=== PATIENT | female | born 2000 | race Caucasian/White ===

== ENCOUNTER 2022-08-13 09:28 | Emergency (ER) | payer SELFPAY ==
--- OUTSIDE RECORDS SUMMARY | 2022-08-13 09:32 | XMS REPORT | Continuity of Care Document ---
:2000 Author Organization [facility] t Address [address] [place] [address] Care Team Providers Name Role Phone PCP, PATIENT DOES NOT HAVE A Primary Care Physician Unavaila ARAMIS Avila Attending Clinician Unavailable Aramis Anaya Attending Clinician Doctor Unassigned, [place] Attending Clinician Unavailable Jesus Trent Attending Clinician Payers Payer Name Policy Type Policy Number Effective Date Expiration Date S [facility] - [id number] 2021 00:00:00 OUT OF STATE Problems Condition Condition Condition Status Onset Resolution Last Treating Co mments Source Name Details Category Date Date Treatment Clinician Date No known No known Disease Unive rs active active ity of problems problems [facility] Allergies, Adverse Reactions, Alerts Allergy Allergy Status Severity Reaction(s) Onset Inactive Treating Comm ents Source Name Type Date Date Clinician NO KNOWN Drug Active Univers ALLERGIE Class ity of S [facility] Social History Social Habit Start Date Stop Date Quantity Comments Source Exposure to 2021-12-11 2021-12-21 Not sure [facility] SARS-CoV-2 (event) 00:00:00 09:58:00 Medica l Branch Tobacco use and 2021-06-03 2021-06-03 Never used [facility] exposure 00:00:00 00:00:00 [facility] Sex Assigned At [birth year] [facility] 00:00:00 00:00:00 [facility] Smoking Status Start Date Stop Date Source Never smoker [facility] Medications Ordered Filled Start Stop Current Ordering Indication Dosage Frequency Signature Comments Components Source Medication Medication Date Date Medication? Clinician (SIG) Name Name predniSONE No [id number] 20mg Take 1 Univers 20 mg 12-21 tablet by ity of tablet 00:00: 04:59 mouth [place] 00 :00 daily for Medical 5 days. Branch No known 2020-06 No Univers medications 08-04 ity of 16:34: [place] 05 Medical Branch predniSONE 2020-06 No [id number] 20mg Take 1 Univers 20 mg 08-04 tablet by ity of tablet 00:00: 05:59 mouth [place] 00 :00 daily for Medical 5 days. Branch Vital Signs Vital Name Observation Time Observation Value Comments Source Systolic blood 2021-12-21 15:03:00 114 mm[Hg] Univer sity [facility] Diastolic blood 2021-12-21 15:03:00 79 mm[facility]Hg] [facility] 2021-12-21 15:03:00 69 /min [facility] Body temperature 2021-12-21 15:03:00 36.67 Fannie [facility] Respiratory rate 2021-12-21 15:03:00 16 /min [facility] Body height 2021-12-21 15:03:00 157.5 cm [facility] Body weight 2021-12-21 15:03:00 63.957 kg [facility] BMI 2021-12-21 15:03:00 25.79 kg/m2 [facility] Oxygen saturation in 2021-12-21 15:03:00 99 /min [facility] Arterial blood by [facility] Pulse oximetry Branch Systolic blood 2021-06-03 22:19:00 122 mm[Hg] Univer sity [facility] Diastolic blood 2021-06-03 22:19:00 82 mm[Hg] Unive rsity of [facility] Heart rate 2021-06-03 22:19:00 80 /min Universi [facility] Body temperature 2021-06-03 22:19:00 37.17 Fannie [facility] Respiratory rate 2021-06-03 22:19:00 16 /min [facility] Body height 2021-06-03 22:19:00 160 cm [facility] Body weight 2021-06-03 22:19:00 63.957 kg [facility] BMI 2021-06-03 22:19:00 24.98 kg/m2 [facility] Oxygen saturation in 2021-06-03 22:19:00 100 /min [facility] Arterial blood by [facility] Pulse oximetry [facility] Procedures Procedure Date / Time Performed Performing Clinician [facility] e ASSIGNMENT OF BENEFITS 2021-12-21 14:58:49 Doctor Unassigned, No [facility] Encounters Start End Encounter Admission Attending Care Care Encounter Source Date/Time Date/Time Type Type Clinicians Facility Department ID 2021-12-21 2021-12-21 Outpatient Derek ROCHE [facility] [id number] Univers 10:00:00 10:22:[address] [facility] 2021-12-21 2021-12-21 Urgent Sukhjinder [facility] [id number] Univers 10:00:00 10:22:22 Care Aramis HEALTH [id number] it y of [place] [id number] Johan as WILLAM?BLEA [id number] [address] MEDICAL OFFICE BUILDING 2021-12-21 2021-12-21 Orders Doctor MORA [id number] Univers 00:00:00 00:00:00 Only Unassigned, RONNELL [id number] ity of [place] [facility] [id number] Johan as [id number] [place] [address] Branch 2021-06-03 2021-06-03 Outpatient Derek ROCHE [facility] [id number] Univers 16:20:00 16:29:25 ARAMIS ity [facility] 2021-06-03 2021-06-03 Urgent Jesus Ibrahim [facility] [id number] Univers 16:17:12 16:29:25 Care Sukhjinder, Aramis HEALTH [id number] ity of [place] [id number] Johan as WILLAM?BLEA [id number] Oh joann [address] MEDICAL OFFICE BUILDING Results This patient has no known results.
--- NOTE | 2022-08-13 10:04 | RAD REPORT ---
EXAM DESCRIPTION: CT - C Spine Wo Con - 08/13/2022 9:50 am CLINICAL HISTORY: neck pain Neck injury and pain, radiculopathy COMPARISON: No comparisons FINDINGS: The cervical vertebral body heights and disc spaces are maintained. No evidence of acute cervical spine fracture or subluxation. Prevertebral soft tissues are normal in thickness. IMPRESSION: Negative for acute cervical spine abnormality. All CT scans are performed using dose optimization technique as appropriate and may include automated exposure control or mA/KV adjustment according to patient size.
[2022-08-13] MEDS ORDERED: KETOROLAC 30 MG/ML INJ ONE (10:16)
[2022-08-13] MEDS ORDERED: DIAZEPAM 10 MG/2 ML INJ SYRINGE ONE (10:38)
--- NOTE | 2022-08-13 10:57 | ER ---
Nurse's Notes [facility] Name: Rossana Scott Age: 21 yrs Sex: Female : 2000 Arrival Date: 08/13/2022 Time: 09:31 Bed 12 Private MD: Diagnosis: Strain of muscle, fascia and tendon at neck level Presentation: 08/13 09:40 Chief complaint: Patient states: Woke this morning and roller, felt a pop in right side jl7 of neck, unable to move neck due to pain and stiffness. Coronavirus screen: At this time, the client does not indicate any symptoms associated with coronavirus-19. Ebola Screen: No symptoms or risks identified at this time. Initial Sepsis Screen: Does the patient meet any 2 criteria? No. Patient's initial sepsis screen is negative. Does the patient have a suspected source of infection? No. Patient's initial sepsis screen is negative. Risk Assessment: Do you want to hurt yourself or someone else? Patient reports no desire to harm self or others. Onset of symptoms was August 13, 2022. 09:40 Method Of Arrival: Ambulatory jl7 09:40 Acuity: ALINA 4 jl7 Triage Assessment: 09:41 General: Appears in no apparent distress. uncomfortable, Behavior is calm, cooperative, jl7 appropriate for age. Pain: Complains of pain in neck Pain currently is 6 out of 10 on a pain scale. 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 - Social history:: Smoking status: Patient denies any tobacco usage or history of. Screenin:38 Abuse screen: Denies threats or abuse. Denies injuries from another. Nutritional ss screening: No deficits noted. Tuberculosis screening: Never had TB. Assessment: 09:35 Reassessment: PETROS Fregoso in triage assessing pt. jl7 10:38 General: Appears in no apparent distress. comfortable, Behavior is calm, cooperative. ss Pain: Complains of pain in neck Is continuous, Aggravated by ROM of neck. Neuro: Level of Consciousness is awake, alert, obeys commands, Oriented to person, place, time, situation. Respiratory: Airway is patent Respiratory effort is even, unlabored, Respiratory pattern is regular, symmetrical. Derm: Skin is intact, is healthy with good turgor, Skin is pink, warm \T\ dry. normal. Vital Signs: 09:40 BP 113 / 80; Pulse 86; Resp 17; Temp 98.5; Pulse Ox 100% ; Weight 65.77 kg; Height 5 jl7 ft. 2 in. (157.48 cm); Pain 6/10; 09:40 Body Mass Index 26.52 (65.77 kg, 157.48 cm) jl7 ED Course: 09:31 Patient arrived in ED. mr 09:32 Ildefonso Bruno PA is PHCP. jmm 09:32 Samuel Ortiz MD is Attending Physician. jmm 09:41 Triage completed. jl7 09:42 Arm band placed on right wrist. Patient placed in waiting room, Patient notified of jl7 wait time. 09:51 CT C Spine In Process Unspecified. EDMS 10:35 Rogelio Michele, RN is Primary Nurse. jl7 10:38 Patient has correct armband on for positive identification. ss 10:38 Inserted saline lock: 20 gauge in left antecubital area, using aseptic technique. ss ,using aseptic technique. earlier insertion by NIKKO Pennington. 11:05 No provider procedures requiring assistance completed. IV discontinued, intact, ss bleeding controlled, No redness/swelling at site. Pressure dressing applied. Administered Medications: 10:15 Drug: Ketorolac 30 mg Route: IVP; Site: left antecubital; jl7 10:38 Follow up: Response: PT reports pain decreased from 6 to 5/10 ss 10:38 Drug: Valium (diazepam) 5 mg Route: IVP; Site: left antecubital; ss 11:05 Follow up: Response: No adverse reaction ss Medication: 10:38 VIS not applicable for this client. ss Outcome: 10:56 Discharge ordered by . jm 11:05 Discharged to home ambulatory. ss 11:05 Condition: improved 11:05 Discharge instructions given to patient, family, Instructed on discharge instructions, follow up and referral plans. Demonstrated understanding of instructions, follow-up care, medications, Prescriptions given X 2. 11:07 Patient left the ED. ss Signatures: Dispatcher [employer] EDMS Ildefonso Bruno PA PA jmm Rivera Shawna mr Giana Narvaez, RN RN ss Rogelio Michele RN RN jl7
--- NOTE | 2022-08-13 10:57 | EDPHYS ---
Physician Documentation [facility] Name: Rossana Scott Age: 21 yrs Sex: Female : 2000 Arrival Date: 08/13/2022 Time: 09:31 Bed 12 Private MD: ED Physician Samuel Ortiz HPI: 08/13 09:38 This 21 yrs old Female presents to ER via Ambulatory with complaints of Stiff Neck. jmm 09:38 Onset: The symptoms/episode began/occurred acutely, today. Is a 21-year-old female with jmm no [place] conditions presents emerged department with complaints of left-sided neck pain which occurred after he turned her neck this morning. Patient states she felt a pop. Denies any weakness or visual changes. . 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 - Social history:: Smoking status: Patient denies any tobacco usage or history of. ROS: 09:38 Constitutional: Negative for fever, chills, and weight loss, Cardiovascular: Negative jmm for chest pain, palpitations, and edema, Respiratory: Negative for shortness of breath, cough, wheezing, and pleuritic chest pain. 09:38 Neck: Positive for pain with movement. 09:38 All other systems are negative. Exam: 09:38 Constitutional: This is a well developed, well nourished patient who is awake, alert, jmm and in no acute distress. Head/Face: atraumatic. Eyes: EOMI, no conjunctival erythema appreciated ENT: Moist Mucus Membranes 09:38 Cardiovascular: Regular rate and rhythm. No edema appreciated Respiratory: Normal respirations, no respiratory distress appreciated Abdomen/GI: Non distended Back: Normal ROM Skin: General appearance color normal MS/ Extremity: Moves all extremities, no obvious deformities appreciated, no edema noted to the lower extremities Neuro: Awake and alert Psych: Behavior is normal, Mood is normal, Patient is cooperative and pleasant 09:38 Neck: External neck: tenderness, that is moderate, C-spine: ROM/movement: pain. Vital Signs: 09:40 BP 113 / 80; Pulse 86; Resp 17; Temp 98.5; Pulse Ox 100% ; Weight 65.77 kg; Height 5 jl7 ft. 2 in. (157.48 cm); Pain 6/10; 09:40 Body Mass Index 26.52 (65.77 kg, 157.48 cm) jl7 MDM: 09:38 Patient medically screened. [facility] 10:54 Differential diagnosis: C-Spine Fracture Cervical Disc Herniation cervical strain, jmm torticollis, Unstable Vertebral Fracture carotid dissection. Data reviewed: vital signs, nurses notes. I considered the following discharge prescriptions or medication management in the emergency department Medications were administered in the Emergency Department. See MAR. Test considered but Not performed: MRI: no neuro symptoms. Counseling: I had a detailed discussion with the patient and/or guardian regarding: the historical points, exam findings, and any diagnostic results supporting the discharge/admit diagnosis, radiology results, the need for outpatient follow up, to return to the emergency department if symptoms worsen or persist or if there are any questions or concerns that arise at home. ED course: Patient states feeling much better. I do not currently suspect carotid dissection, fracture, unstable ligamentous injury. Patient advised follow-up PCP and otherwise given strict return precautions. Patient understood and agrees plan of care.. 08/13 09:39 Order name: CT C Spine; Complete Time: 10:05 [facility] 08/13 09:39 Order name: Saline Lock; Complete Time: 10:09 [facility] Administered Medications: 10:15 Drug: Ketorolac 30 mg Route: IVP; Site: left antecubital; [facility] 10:38 Follow up: Response: PT reports pain decreased from 6 to 5/10 ss 10:38 Drug: Valium (diazepam) 5 mg Route: IVP; Site: left antecubital; ss 11:05 Follow up: Response: No adverse reaction ss Disposition Summary: 08/13/22 10:56 Discharge Ordered Location: Home [facility] Condition: Stable [facility] Diagnosis - Strain of muscle, fascia and tendon at neck level [facility] Followup: adrien - With: Private Physician - When: 2 - 3 days - Reason: Recheck today's complaints, Continuance of care, Re-evaluation by your physician Discharge Instructions: - Discharge Summary Sheet [facility] - Cervical Sprain [facility] Forms: - Medication Reconciliation Form jmm - Thank You Letter jmm - Antibiotic Education jmm - Prescription Opioid Use jmm - Work release form em1 Prescriptions: - Zanaflex 4 mg Oral Tablet - take 1 tablet by ORAL route every 8 hours As needed; 20 tablet; Refills: 0, [facility] Product Selection Permitted - Diclofenac Sodium 75 mg Oral Tablet Sustained Release - take 1 tablet by ORAL route 2 times per day; 30 tablet; Refills: 0, Product [facility] Selection Permitted Signatures: Dispatcher [employer] Ildefonso Beasley PA PA jmm Smirch, [place], RN RN ss Rogelio Michele RN RN jl7
[2022-08-13 11:12] VITALS: BP 113/80; TEMP 98.5; O2SAT 100
[2022-08-13] MEDS ORDERED: NA CHLORIDE 0.9% 500 ML ONE (11:23)
== END 2022-08-13 11:07 | disposition home or self-care (01) ==
LOC: ER 09:28
DX: S16.1XXA Strain of muscle, fascia and tendon at neck level, initial encounter (principal)
CPT/HCPCS: 72125; 96374; 96375; 99284; J3360; J7040